=== PATIENT | male | born 1960 | race Caucasian/White ===

== ENCOUNTER 2017-09-23 16:59 | Inpatient (IN) | payer OTHER ==
[~2017-09-23] VITALS: Ht 172.7 cm; Wt 93.1 kg
[2017-09-23 17:45] LABS: MCH 29.2 PG (29.0-34.0); MCHC 32.1 G/DL (30.0-36.0); MCV 90.9 FL (86-99); MEAN PLAT.VOLUME 8.1 uM^3 (9.0-12.4); PLATELET COUNT 538 K/uL (156-360); RBC DIS.WIDTH-CV 13.3 % (11.8-14.6); RBC DIS.WIDTH-SD 45.1 % (39-53); RED BLOOD COUNT 4.73 M/uL (4.00-5.50); WHITE BLOOD COUNT 8.6 K/uL (4.1-10.2)
[2017-09-23 17:57] LABS: CHLORIDE 103 mEq/L (99-109); POTASSIUM 3.7 mEq/L (3.7-5.4); SODIUM 139 mEq/L (136-147)
[2017-09-23 17:59] LABS: GLUCOSE 245 mg/dL (70-99)
[2017-09-23 18:00] LABS: ANION GAP 12 MEQ/L (2-14)
[2017-09-23 18:01] LABS: TOTAL BILIRUBIN 0.3 mg/dL (0.0-1.0)
[2017-09-23 18:02] LABS: ALKALINE PHOSPHATASE 73 IU/L (3-129); GFR ESTIMATE (CALCULATED) > 59 mL/min/
[2017-09-23 18:04] LABS: UREA NITROGEN (BUN) 12 mg/dL (9-23)
[2017-09-23 18:08] LABS: TROP-I INTERPRETATION NEGATIVE; TROPONIN-I < 0.01 ng/mL (0.0-0.30)
[2017-09-23 18:25] LABS: PROTHROMBIN TIME 11.9 SEC (10.2-12.9)
[2017-09-23 18:28] LABS: PTT 25.8 SEC (25-37)
[2017-09-23 23:00] VITALS: BP 167/110
[2017-09-23 23:05] VITALS: BP 167/110
[2017-09-23 23:15] VITALS: BP 145/95
[2017-09-23 23:30] VITALS: BP 129/86
[2017-09-23 23:40] LABS: HEMATOCRIT 37.9 % (38.0-50.0); MCH 29.1 PG (29.0-34.0); MCHC 31.7 G/DL (30.0-36.0); MCV 91.8 FL (86-99); MEAN PLAT.VOLUME 8.3 uM^3 (9.0-12.4); PLATELET COUNT 398 K/uL (156-360); RBC DIS.WIDTH-CV 13.3 % (11.8-14.6); RBC DIS.WIDTH-SD 45.7 % (39-53); RED BLOOD COUNT 4.13 M/uL (4.00-5.50); WHITE BLOOD COUNT 2.4 K/uL (4.1-10.2)
[2017-09-23 23:45] VITALS: BP 117/72
[2017-09-23 23:46] LABS: BASE EXCESS -2.2 mEq/L (-3 to +3); BICARBONATE 24.6 mEq/L (22-26); CARBOXY HGB 0.8 % (0-5); COMMENTS - BLOOD GASES C+; DEVICE VENT; FI02 70 %; MECHANICAL RATE 14 resp/min; METHEMOGLOBIN 1.3 % (0-1.5); MODE AC; PCO2 50 mm Hg (35-45); PEEP 5 CM/H20; PO2 240 mm Hg (80-100); SITE RR; TIDAL VOLUME 500 ML; TOTAL RESP RATE 14 resp/min
[2017-09-23 23:47] LABS: SODIUM 140 mEq/L (136-147)
[2017-09-23 23:48] LABS: GLUCOSE 130 mg/dL (70-99)
[2017-09-23 23:50] LABS: ANION GAP 4 MEQ/L (2-14)
[2017-09-23 23:52] LABS: GFR ESTIMATE (CALCULATED) > 59 mL/min/
[2017-09-23 23:53] LABS: UREA NITROGEN (BUN) 12 mg/dL (9-23)
[2017-09-24] VITALS (24 sets, daily range): BP systolic 90–119; BP diastolic 60–78
[2017-09-24 00:04] LABS: CHLORIDE 114 mEq/L (99-109); POTASSIUM 4.5 mEq/L (3.7-5.4)
[2017-09-24 00:39] LABS: METH RESISTANT S AUREUS PCR NEGATIVE (NEGATIVE)
[2017-09-24 00:43] LABS: PROBE CHECK PASS; SPECIMEN PROCESSING CONTROL PASS
[2017-09-24 05:48] LABS: HEMATOCRIT 36.1 % (38.0-50.0); MCH 27.8 PG (29.0-34.0); MCHC 30.5 G/DL (30.0-36.0); MCV 91.4 FL (86-99); MEAN PLAT.VOLUME 8.5 uM^3 (9.0-12.4); PLATELET COUNT 392 K/uL (156-360); RBC DIS.WIDTH-CV 13.3 % (11.8-14.6); RBC DIS.WIDTH-SD 45.2 % (39-53); RED BLOOD COUNT 3.95 M/uL (4.00-5.50); WHITE BLOOD COUNT 2.6 K/uL (4.1-10.2)
[2017-09-24 06:07] LABS: ALKALINE PHOSPHATASE 37 IU/L (3-129); ANION GAP 7 MEQ/L (2-14); CHLORIDE 109 MEQ/L (99-109); GFR ESTIMATE (CALCULATED) > 59 mL/min/; GLUCOSE 144 mg/dL (70-99); POTASSIUM 5.4 MEQ/L (3.7-5.4); SAMPLE HEMOLYSIS CHECK 0; SAMPLE ICTERIC CHECK 0; SAMPLE LIPEMIA CHECK 0; SODIUM 140 MEQ/L (136-147); TOTAL BILIRUBIN 0.4 MG/DL (0.0-1.0); UREA NITROGEN (BUN) 14 mg/dL (9-23)
[2017-09-24 08:45] LABS: BASE EXCESS -2.4 mEq/L (-3 to +3); BICARBONATE 23.2 mEq/L (22-26); CARBOXY HGB 0.9 % (0-5); METHEMOGLOBIN 1.4 % (0-1.5); pH 7.35 (7.35-7.45)
[2017-09-24 08:46] LABS: COMMENTS - BLOOD GASES A+C+; DEVICE VENT; FI02 30 %; MODE TC; PCO2 42 mm Hg (35-45); PEEP 5 CM/H20; PO2 97 mm Hg (80-100); SITE RR; TOTAL RESP RATE 12 resp/min
[2017-09-24 14:00] LABS: POINT-OF-CARE METER ID UU14174217; POINT-OF-CARE USER ID 612031313
[2017-09-24 14:54] LABS: Estimated Average Glucose 140 mg/dL (70-123); HEMOGLOBIN A1c (GLYCOHEMOGLOB) 6.5 % HGB (Below 5.7)
[2017-09-24 18:15] LABS: POINT-OF-CARE METER ID UU14174217; POINT-OF-CARE USER ID 612031313
[2017-09-25] VITALS (18 sets, daily range): BP systolic 89–121; BP diastolic 56–75
[2017-09-25 00:26] LABS: POINT-OF-CARE METER ID UU13113748
[2017-09-25 05:40] LABS: HEMATOCRIT 36.2 % (38.0-50.0); MCH 28.1 PG (29.0-34.0); MCHC 30.1 G/DL (30.0-36.0); MCV 93.3 FL (86-99); MEAN PLAT.VOLUME 8.9 uM^3 (9.0-12.4); PLATELET COUNT 380 K/uL (156-360); RBC DIS.WIDTH-CV 13.8 % (11.8-14.6); RBC DIS.WIDTH-SD 47.1 % (39-53); RED BLOOD COUNT 3.88 M/uL (4.00-5.50); WHITE BLOOD COUNT 11.7 K/uL (4.1-10.2)
[2017-09-25 06:01] LABS: POINT-OF-CARE METER ID UU14162636
[2017-09-25 06:07] LABS: ABS NEUTROPHIL COUNT 10.3; BAND NEUTROPHILS 35.8 % (0-8.0); BURR CELLS 1+; EOSINOPHIL ABS CT 0.1; EOSINOPHILS 0.9 % (0-5.0); HYPOCHROMASIA 1+; INSTRUMENT ABS NEUTROPHIL CT 10.3 K/uL; LYMPHOCYTES 4.6 % (15.0-45.0); METAMYELOCYTES 4.6 %; MICROCYTOSIS 2+; PLAT.SUFFICIENCY ADEQUATE; POIKILOCYTOSIS 1+; SEG.NEUTROPHILS 52.3 % (46.0-76.0)
[2017-09-25 06:21] LABS: ANION GAP 6 MEQ/L (2-14); CHLORIDE 109 MEQ/L (99-109); GFR ESTIMATE (CALCULATED) > 59 mL/min/; POTASSIUM 4.7 MEQ/L (3.7-5.4); SAMPLE HEMOLYSIS CHECK 0; SAMPLE ICTERIC CHECK 0; SAMPLE LIPEMIA CHECK 0; SODIUM 142 MEQ/L (136-147); UREA NITROGEN (BUN) 16 mg/dL (9-23)
[2017-09-25 06:25] LABS: GLUCOSE 77 mg/dL (70-99)
[2017-09-25 12:24] LABS: POINT-OF-CARE METER ID UU13113803
[2017-09-25 17:30] LABS: POINT-OF-CARE METER ID UU14174217
[2017-09-26] VITALS (8 sets, daily range): BP systolic 97–142; BP diastolic 65–94
[2017-09-26 01:25] LABS: POINT-OF-CARE METER ID UU14174217; POINT-OF-CARE USER ID PHATLC
[2017-09-26 05:19] LABS: POINT-OF-CARE METER ID UU14314083; POINT-OF-CARE USER ID PHATLC
[2017-09-26 05:53] LABS: HEMATOCRIT 32.4 % (38.0-50.0); MCH 28.4 PG (29.0-34.0); MCHC 31.2 G/DL (30.0-36.0); PLATELET COUNT 399 K/uL (156-360); RBC DIS.WIDTH-CV 13.7 % (11.8-14.6); RBC DIS.WIDTH-SD 46.5 % (39-53); RED BLOOD COUNT 3.56 M/uL (4.00-5.50); WHITE BLOOD COUNT 12.3 K/uL (4.1-10.2)
[2017-09-26 06:31] LABS: ANION GAP 6 MEQ/L (2-14); CHLORIDE 108 MEQ/L (99-109); GFR ESTIMATE (CALCULATED) > 59 mL/min/; POTASSIUM 4.1 MEQ/L (3.7-5.4); SAMPLE HEMOLYSIS CHECK 0; SAMPLE ICTERIC CHECK 0; SAMPLE LIPEMIA CHECK 0; SODIUM 140 MEQ/L (136-147); UREA NITROGEN (BUN) 13 mg/dL (9-23)
[2017-09-26 06:36] LABS: GLUCOSE 98 mg/dL (70-99)
[2017-09-26 07:48] LABS: ABS NEUTROPHIL COUNT 11.7; ANISOCYTOSIS 1+; EOSINOPHIL ABS CT 0; INSTRUMENT ABS NEUTROPHIL CT 11.4 K/uL; PLAT.SUFFICIENCY ADEQUATE
[2017-09-26 13:06] LABS: POINT-OF-CARE METER ID UU14208751; POINT-OF-CARE USER ID 612031313
[2017-09-26 18:16] LABS: POINT-OF-CARE METER ID UU14208751; POINT-OF-CARE USER ID 612031313
[2017-09-27] VITALS (10 sets, daily range): BP systolic 125–146; BP diastolic 77–92
[2017-09-27 00:47] LABS: POINT-OF-CARE METER ID UU13113748; POINT-OF-CARE USER ID PHATLC
[2017-09-27 05:59] LABS: EOSINOPHIL (%) 0.6 % (0-5); EOSINOPHIL COUNT 0.1 K/uL (0-0.3); HEMATOCRIT 35.4 % (38.0-50.0); IMMATURE GRANULOCYTE (%) 0.4 % (0.0-0.7); IMMATURE GRANULOCYTE COUNT 0.1 K/uL; INSTRUMENT ABS NEUTROPHIL CT 12.3 K/uL; LYMPHOCYTE COUNT 0.8 K/uL (1.0-2.8); MCHC 31.9 G/DL (30.0-36.0); MCV 90.8 FL (86-99); MEAN PLAT.VOLUME 9.2 uM^3 (9.0-12.4); MONOCYTE (%) 4.9 % (3-12); MONOCYTE COUNT 0.7 K/uL (0-0.8); NEUTROPHIL (%) 88.3 % (45-76); NEUTROPHIL COUNT 12.3 K/uL (1.8-6.4); PLATELET COUNT 431 K/uL (156-360); RBC DIS.WIDTH-SD 47.3 % (39-53); WHITE BLOOD COUNT 13.9 K/uL (4.1-10.2)
[2017-09-27 06:19] LABS: ANION GAP 11 MEQ/L (2-14); CHLORIDE 104 MEQ/L (99-109); GFR ESTIMATE (CALCULATED) > 59 mL/min/; GLUCOSE 97 mg/dL (70-99); POTASSIUM 4.1 MEQ/L (3.7-5.4); SAMPLE HEMOLYSIS CHECK 0; SAMPLE ICTERIC CHECK 0; SAMPLE LIPEMIA CHECK 0; SODIUM 143 MEQ/L (136-147); UREA NITROGEN (BUN) 10 mg/dL (9-23)
[2017-09-27 11:42] LABS: POINT-OF-CARE METER ID UU14314082; POINT-OF-CARE USER ID 612031313
[2017-09-27 18:21] LABS: POINT-OF-CARE METER ID UU14174217; POINT-OF-CARE USER ID 612031313
[2017-09-28] VITALS (8 sets, daily range): BP systolic 104–138; BP diastolic 60–88
[2017-09-28 00:54] LABS: POINT-OF-CARE METER ID UU14174217
[2017-09-28 05:38] LABS: EOSINOPHIL COUNT 0.1 K/uL (0-0.3); HEMATOCRIT 31.1 % (38.0-50.0); IMMATURE GRANULOCYTE (%) 0.7 % (0.0-0.7); IMMATURE GRANULOCYTE COUNT 0.1 K/uL; INSTRUMENT ABS NEUTROPHIL CT 7.5 K/uL; LYMPHOCYTE COUNT 0.7 K/uL (1.0-2.8); MCH 28.4 PG (29.0-34.0); MCHC 31.8 G/DL (30.0-36.0); MCV 89.1 FL (86-99); MEAN PLAT.VOLUME 8.9 uM^3 (9.0-12.4); MONOCYTE (%) 7.8 % (3-12); MONOCYTE COUNT 0.7 K/uL (0-0.8); NEUTROPHIL (%) 82.5 % (45-76); NEUTROPHIL COUNT 7.5 K/uL (1.8-6.4); PLATELET COUNT 391 K/uL (156-360); RBC DIS.WIDTH-SD 45.6 % (39-53); RED BLOOD COUNT 3.49 M/uL (4.00-5.50); WHITE BLOOD COUNT 9.1 K/uL (4.1-10.2)
[2017-09-28 06:00] LABS: ANION GAP 7 MEQ/L (2-14); CHLORIDE 110 MEQ/L (99-109); GFR ESTIMATE (CALCULATED) > 59 mL/min/; GLUCOSE 103 mg/dL (70-99); POTASSIUM 3.3 MEQ/L (3.7-5.4); SAMPLE HEMOLYSIS CHECK 0; SAMPLE ICTERIC CHECK 0; SAMPLE LIPEMIA CHECK 0; SODIUM 144 MEQ/L (136-147); UREA NITROGEN (BUN) 10 mg/dL (9-23)
[2017-09-28 13:28] LABS: POINT-OF-CARE METER ID UU14208751
[2017-09-28] MEDS ORDERED: NEURONTIN300 MG PO (13:42)
[2017-09-28] MEDS ORDERED: ZANAFLEX4 M1 PO (13:42)
[2017-09-28] MEDS ORDERED: CLARITIN10 M3 PO (13:42)
[2017-09-28] MEDS ORDERED: ULTRAM50 MG PO (13:43)
[2017-09-28] MEDS ORDERED: VENTOLIN HFA18 GM IH (13:44)
[2017-09-28] MEDS ORDERED: TYLENOL ARTHRI650 MG PO (13:44)
[2017-09-28 17:56] LABS: POINT-OF-CARE METER ID UU13113774
[2017-09-29] VITALS (7 sets, daily range): BP systolic 127–143; BP diastolic 69–81
[2017-09-29 01:07] LABS: POINT-OF-CARE METER ID UU13113725
[2017-09-29 06:11] LABS: MCH 28.1 PG (29.0-34.0); MCHC 31.6 G/DL (30.0-36.0); MCV 89.1 FL (86-99); MEAN PLAT.VOLUME 8.9 uM^3 (9.0-12.4); PLATELET COUNT 423 K/uL (156-360); RBC DIS.WIDTH-CV 14.1 % (11.8-14.6); RBC DIS.WIDTH-SD 45.8 % (39-53); RED BLOOD COUNT 3.59 M/uL (4.00-5.50); WHITE BLOOD COUNT 8.6 K/uL (4.1-10.2)
[2017-09-29 06:33] LABS: ANION GAP 8 MEQ/L (2-14); CHLORIDE 109 MEQ/L (99-109); GFR ESTIMATE (CALCULATED) > 59 mL/min/; GLUCOSE 93 mg/dL (70-99); POTASSIUM 3.8 MEQ/L (3.7-5.4); SAMPLE HEMOLYSIS CHECK 0; SAMPLE ICTERIC CHECK 0; SAMPLE LIPEMIA CHECK 0; SODIUM 144 MEQ/L (136-147); UREA NITROGEN (BUN) 11 mg/dL (9-23)
[2017-09-29 06:35] LABS: POINT-OF-CARE METER ID UU13113725
[2017-09-29 06:53] LABS: EOSINOPHIL (%) 2.1 % (0-5); EOSINOPHIL COUNT 0.2 K/uL (0-0.3); IMMATURE GRANULOCYTE (%) 1.2 % (0.0-0.7); IMMATURE GRANULOCYTE COUNT 0.1 K/uL; INSTRUMENT ABS NEUTROPHIL CT 6.3 K/uL; LYMPHOCYTE COUNT 1.1 K/uL (1.0-2.8); MONOCYTE (%) 10.2 % (3-12); MONOCYTE COUNT 0.9 K/uL (0-0.8); NEUTROPHIL (%) 73.3 % (45-76); NEUTROPHIL COUNT 6.3 K/uL (1.8-6.4)
[2017-09-29 11:25] LABS: POINT-OF-CARE METER ID UU13113774
[2017-09-30 04:16] VITALS: BP 132/79
[2017-09-30 06:53] VITALS: BP 123/73
[2017-09-30 11:25] VITALS: BP 118/74
[2017-09-30 15:20] VITALS: BP 125/77
[2017-09-30 19:55] VITALS: BP 130/80
[2017-09-30 21:38] LABS: POINT-OF-CARE METER ID UU13113725
[2017-09-30 23:24] VITALS: BP 138/85
[2017-10-01 04:23] VITALS: BP 137/83
[2017-10-01 05:39] LABS: HEMATOCRIT 31.8 % (38.0-50.0); MCH 28.6 PG (29.0-34.0); MCHC 32.4 G/DL (30.0-36.0); MCV 88.3 FL (86-99); MEAN PLAT.VOLUME 8.6 uM^3 (9.0-12.4); PLATELET COUNT 442 K/uL (156-360); RBC DIS.WIDTH-CV 13.8 % (11.8-14.6); RBC DIS.WIDTH-SD 44.8 % (39-53); WHITE BLOOD COUNT 10.9 K/uL (4.1-10.2)
[2017-10-01 06:29] LABS: ANION GAP 6 MEQ/L (2-14); CHLORIDE 109 MEQ/L (99-109); GFR ESTIMATE (CALCULATED) > 59 mL/min/; GLUCOSE 88 mg/dL (70-99); POTASSIUM 3.8 MEQ/L (3.7-5.4); PREALBUMIN 6.6 mg/dL (10-40); SAMPLE HEMOLYSIS CHECK 0; SAMPLE ICTERIC CHECK 0; SAMPLE LIPEMIA CHECK 0; SODIUM 144 MEQ/L (136-147); UREA NITROGEN (BUN) 10 mg/dL (9-23)
[2017-10-01 07:51] VITALS: BP 143/75
[2017-10-01 12:19] VITALS: BP 127/65
[2017-10-01 19:07] VITALS: BP 120/72
[2017-10-02] VITALS (8 sets, daily range): BP systolic 117–136; BP diastolic 63–74
[2017-10-02 06:14] LABS: ANION GAP 5 MEQ/L (2-14); CHLORIDE 109 MEQ/L (99-109); GFR ESTIMATE (CALCULATED) > 59 mL/min/; GLUCOSE 98 mg/dL (70-99); POTASSIUM 3.5 MEQ/L (3.7-5.4); SAMPLE HEMOLYSIS CHECK 0; SAMPLE ICTERIC CHECK 0; SAMPLE LIPEMIA CHECK 0; SODIUM 143 MEQ/L (136-147); UREA NITROGEN (BUN) 9 mg/dL (9-23)
[2017-10-03 04:03] VITALS: BP 129/75
[2017-10-03 06:33] LABS: ANION GAP 8 MEQ/L (2-14); CHLORIDE 104 MEQ/L (99-109); GFR ESTIMATE (CALCULATED) > 59 mL/min/; GLUCOSE 93 mg/dL (70-99); POTASSIUM 3.9 MEQ/L (3.7-5.4); SAMPLE HEMOLYSIS CHECK 0; SAMPLE ICTERIC CHECK 0; SAMPLE LIPEMIA CHECK 0; SODIUM 141 MEQ/L (136-147); UREA NITROGEN (BUN) 9 mg/dL (9-23)
[2017-10-03 08:07] VITALS: BP 118/60
[2017-10-03 11:26] VITALS: BP 114/63
[2017-10-03 16:24] VITALS: BP 120/72
[2017-10-03 19:22] VITALS: BP 132/68
[2017-10-04] VITALS (7 sets, daily range): BP systolic 110–131; BP diastolic 67–82
[2017-10-04 06:33] LABS: ANION GAP 6 MEQ/L (2-14); CHLORIDE 104 MEQ/L (99-109); GFR ESTIMATE (CALCULATED) > 59 mL/min/; GLUCOSE 92 mg/dL (70-99); POTASSIUM 4.1 MEQ/L (3.7-5.4); SAMPLE HEMOLYSIS CHECK 0; SAMPLE ICTERIC CHECK 0; SAMPLE LIPEMIA CHECK 0; SODIUM 141 MEQ/L (136-147); UREA NITROGEN (BUN) 11 mg/dL (9-23)
[2017-10-04 11:07] LABS: EOSINOPHIL (%) 0.7 % (0-5); EOSINOPHIL COUNT 0.1 K/uL (0-0.3); HEMATOCRIT 31.5 % (38.0-50.0); IMMATURE GRANULOCYTE (%) 0.7 % (0.0-0.7); IMMATURE GRANULOCYTE COUNT 0.1 K/uL; LYMPHOCYTE COUNT 1.4 K/uL (1.0-2.8); MCHC 31.7 G/DL (30.0-36.0); MCV 91.3 FL (86-99); MEAN PLAT.VOLUME 9.3 uM^3 (9.0-12.4); MONOCYTE COUNT 1.1 K/uL (0-0.8); NEUTROPHIL (%) 80.1 % (45-76); RBC DIS.WIDTH-CV 14.2 % (11.8-14.6); RBC DIS.WIDTH-SD 47.8 % (39-53); RED BLOOD COUNT 3.45 M/uL (4.00-5.50); WHITE BLOOD COUNT 13.7 K/uL (4.1-10.2)
[2017-10-04 11:10] LABS: PLATELET COUNT 610 K/uL (156-360)
[2017-10-05 05:31] LABS: EOSINOPHIL (%) 0.8 % (0-5); EOSINOPHIL COUNT 0.1 K/uL (0-0.3); HEMATOCRIT 30.1 % (38.0-50.0); IMMATURE GRANULOCYTE (%) 0.7 % (0.0-0.7); IMMATURE GRANULOCYTE COUNT 0.1 K/uL; INSTRUMENT ABS NEUTROPHIL CT 11.4 K/uL; LYMPHOCYTE COUNT 1.3 K/uL (1.0-2.8); MCH 28.7 PG (29.0-34.0); MCHC 32.6 G/DL (30.0-36.0); MCV 88.3 FL (86-99); MEAN PLAT.VOLUME 8.7 uM^3 (9.0-12.4); MONOCYTE COUNT 1.3 K/uL (0-0.8); NEUTROPHIL COUNT 11.4 K/uL (1.8-6.4); PLATELET COUNT 681 K/uL (156-360); RBC DIS.WIDTH-SD 45.6 % (39-53); RED BLOOD COUNT 3.41 M/uL (4.00-5.50); WHITE BLOOD COUNT 14.2 K/uL (4.1-10.2)
[2017-10-05 05:56] LABS: ANION GAP 5 MEQ/L (2-14); CHLORIDE 103 MEQ/L (99-109); GFR ESTIMATE (CALCULATED) > 59 mL/min/; GLUCOSE 103 mg/dL (70-99); POTASSIUM 4.5 MEQ/L (3.7-5.4); SAMPLE HEMOLYSIS CHECK 0; SAMPLE ICTERIC CHECK 0; SAMPLE LIPEMIA CHECK 0; SODIUM 139 MEQ/L (136-147); UREA NITROGEN (BUN) 10 mg/dL (9-23)
[2017-10-05 07:17] VITALS: BP 115/65
[2017-10-05 07:30] VITALS: BP 131/69
[2017-10-05 15:35] VITALS: BP 93/52
[2017-10-05 23:45] VITALS: BP 125/69
[2017-10-06 06:23] LABS: EOSINOPHIL (%) 1.2 % (0-5); EOSINOPHIL COUNT 0.2 K/uL (0-0.3); HEMATOCRIT 31.8 % (38.0-50.0); IMMATURE GRANULOCYTE (%) 0.7 % (0.0-0.7); IMMATURE GRANULOCYTE COUNT 0.1 K/uL; INSTRUMENT ABS NEUTROPHIL CT 11.7 K/uL; LYMPHOCYTE COUNT 1.4 K/uL (1.0-2.8); MCH 27.9 PG (29.0-34.0); MCHC 31.4 G/DL (30.0-36.0); MCV 88.6 FL (86-99); MEAN PLAT.VOLUME 8.7 uM^3 (9.0-12.4); MONOCYTE (%) 11.3 % (3-12); MONOCYTE COUNT 1.7 K/uL (0-0.8); NEUTROPHIL (%) 77.1 % (45-76); NEUTROPHIL COUNT 11.7 K/uL (1.8-6.4); PLATELET COUNT 842 K/uL (156-360); RBC DIS.WIDTH-CV 13.8 % (11.8-14.6); RBC DIS.WIDTH-SD 44.9 % (39-53); RED BLOOD COUNT 3.59 M/uL (4.00-5.50); WHITE BLOOD COUNT 15.2 K/uL (4.1-10.2)
[2017-10-06 06:43] LABS: ANION GAP 7 MEQ/L (2-14); CHLORIDE 104 MEQ/L (99-109); GFR ESTIMATE (CALCULATED) > 59 mL/min/; GLUCOSE 102 mg/dL (70-99); SAMPLE HEMOLYSIS CHECK 0; SAMPLE ICTERIC CHECK 0; SAMPLE LIPEMIA CHECK 0; SODIUM 141 MEQ/L (136-147); UREA NITROGEN (BUN) 10 mg/dL (9-23)
[2017-10-06 07:37] VITALS: BP 105/62
[2017-10-06 15:20] VITALS: BP 120/67
[2017-10-06 23:25] VITALS: BP 126/66
[2017-10-07 08:03] VITALS: BP 118/56
[2017-10-07 11:54] LABS: BASOPHIL COUNT 0.1 K/uL (0-0.1); EOSINOPHIL (%) 0.8 % (0-5); EOSINOPHIL COUNT 0.1 K/uL (0-0.3); HEMATOCRIT 31.3 % (38.0-50.0); IMMATURE GRANULOCYTE (%) 0.5 % (0.0-0.7); IMMATURE GRANULOCYTE COUNT 0.1 K/uL; INSTRUMENT ABS NEUTROPHIL CT 10.7 K/uL; LYMPHOCYTE COUNT 1.2 K/uL (1.0-2.8); MCH 27.9 PG (29.0-34.0); MCHC 31.9 G/DL (30.0-36.0); MCV 87.4 FL (86-99); MEAN PLAT.VOLUME 8.4 uM^3 (9.0-12.4); MONOCYTE (%) 10.1 % (3-12); MONOCYTE COUNT 1.4 K/uL (0-0.8); NEUTROPHIL (%) 79.5 % (45-76); NEUTROPHIL COUNT 10.7 K/uL (1.8-6.4); PLATELET COUNT 955 K/uL (156-360); RBC DIS.WIDTH-CV 13.7 % (11.8-14.6); RBC DIS.WIDTH-SD 44.4 % (39-53); RED BLOOD COUNT 3.58 M/uL (4.00-5.50); WHITE BLOOD COUNT 13.5 K/uL (4.1-10.2)
[2017-10-07 12:16] LABS: ANION GAP 4 MEQ/L (2-14); CHLORIDE 101 MEQ/L (99-109); POTASSIUM 5.4 MEQ/L (3.7-5.4); SAMPLE HEMOLYSIS CHECK 0; SAMPLE ICTERIC CHECK 0; SAMPLE LIPEMIA CHECK 0; SODIUM 136 MEQ/L (136-147); TOTAL BILIRUBIN 0.3 MG/DL (0.0-1.0)
[2017-10-07 12:21] LABS: ALKALINE PHOSPHATASE 75 IU/L (3-129); GFR ESTIMATE (CALCULATED) > 59 mL/min/; GLUCOSE 107 mg/dL (70-99); UREA NITROGEN (BUN) 11 mg/dL (9-23)
[2017-10-07 13:56] LABS: ERTH.SED.RATE 91 MM/HR (0-20)
[2017-10-07 14:44] LABS: C-REACTIVE PROTEIN 83.8 MG/L (0-10)
[2017-10-07 16:00] VITALS: BP 125/72
[2017-10-07 23:26] VITALS: BP 121/67
[2017-10-08 07:36] VITALS: BP 124/66
[2017-10-08 08:59] LABS: BASOPHIL COUNT 0.1 K/uL (0-0.1); EOSINOPHIL (%) 1.4 % (0-5); EOSINOPHIL COUNT 0.2 K/uL (0-0.3); IMMATURE GRANULOCYTE (%) 0.4 % (0.0-0.7); IMMATURE GRANULOCYTE COUNT 0.1 K/uL; INSTRUMENT ABS NEUTROPHIL CT 9.3 K/uL; LYMPHOCYTE COUNT 1.3 K/uL (1.0-2.8); MCH 28.3 PG (29.0-34.0); MCHC 32.3 G/DL (30.0-36.0); MCV 87.8 FL (86-99); MEAN PLAT.VOLUME 8.5 uM^3 (9.0-12.4); MONOCYTE (%) 11.4 % (3-12); MONOCYTE COUNT 1.4 K/uL (0-0.8); NEUTROPHIL (%) 75.7 % (45-76); NEUTROPHIL COUNT 9.3 K/uL (1.8-6.4); PLATELET COUNT 932 K/uL (156-360); RBC DIS.WIDTH-CV 14.1 % (11.8-14.6); RBC DIS.WIDTH-SD 45.1 % (39-53); RED BLOOD COUNT 3.53 M/uL (4.00-5.50); WHITE BLOOD COUNT 12.2 K/uL (4.1-10.2)
[2017-10-08 09:32] LABS: ANION GAP 7 MEQ/L (2-14); CHLORIDE 100 MEQ/L (99-109); GFR ESTIMATE (CALCULATED) > 59 mL/min/; GLUCOSE 123 mg/dL (70-99); POTASSIUM 5.3 MEQ/L (3.7-5.4); SAMPLE HEMOLYSIS CHECK 0; SAMPLE ICTERIC CHECK 0; SAMPLE LIPEMIA CHECK 0; SODIUM 136 MEQ/L (136-147); UREA NITROGEN (BUN) 13 mg/dL (9-23)
[2017-10-08 17:48] VITALS: BP 118/66
[2017-10-08 23:45] VITALS: BP 137/65
[2017-10-09 05:59] LABS: BASOPHIL COUNT 0.1 K/uL (0-0.1); EOSINOPHIL (%) 1.2 % (0-5); EOSINOPHIL COUNT 0.1 K/uL (0-0.3); IMMATURE GRANULOCYTE (%) 0.4 % (0.0-0.7); IMMATURE GRANULOCYTE COUNT 0.1 K/uL; INSTRUMENT ABS NEUTROPHIL CT 8.9 K/uL; LYMPHOCYTE COUNT 1.4 K/uL (1.0-2.8); MONOCYTE COUNT 1.4 K/uL (0-0.8); NEUTROPHIL (%) 74.2 % (45-76); NEUTROPHIL COUNT 8.9 K/uL (1.8-6.4)
[2017-10-09 06:01] LABS: HEMATOCRIT 30.7 % (38.0-50.0); MCH 28.4 PG (29.0-34.0); MCHC 32.6 G/DL (30.0-36.0); MCV 87.2 FL (86-99); RBC DIS.WIDTH-SD 44.7 % (39-53); RED BLOOD COUNT 3.52 M/uL (4.00-5.50)
[2017-10-09 06:23] LABS: ANION GAP 8 MEQ/L (2-14); CHLORIDE 100 MEQ/L (99-109); GFR ESTIMATE (CALCULATED) > 59 mL/min/; GLUCOSE 101 mg/dL (70-99); POTASSIUM 5.3 MEQ/L (3.7-5.4); SAMPLE HEMOLYSIS CHECK 0; SAMPLE ICTERIC CHECK 0; SAMPLE LIPEMIA CHECK 0; SODIUM 136 MEQ/L (136-147); UREA NITROGEN (BUN) 14 mg/dL (9-23)
[2017-10-09 06:41] LABS: PLAT.SUFFICIENCY INCREASED
[2017-10-09 06:59] VITALS: BP 115/66
[2017-10-09 11:17] VITALS: BP 130/70
[2017-10-09] MEDS ORDERED: DIAZEPAM5 MG PO (12:41)
[2017-10-09] MEDS ORDERED: OXYCODONE HCL5 MG PO (12:41)
[2017-10-09] MEDS ORDERED: FLUOXETINE HCL20 MG PO (12:41)
[2017-10-09 13:27] LABS: MEAN PLAT.VOLUME 8.7 uM^3 (9.0-12.4); PLATELET COUNT 1123 K/uL (156-360)
[2017-10-09 15:30] VITALS: BP 110/70
[2017-10-09] MEDS ORDERED: LOVENOX40 MG/0.4 SC (15:47)
== END 2017-10-09 19:15 | disposition home health service (06) | DRG 329 ==
LOC: EME 16:59 → SDC 20:23 → 5EAST 22:52 → 4WEST 22:52 → ENRESERV 09-28 11:56 → 5EAST 09-28 14:15
PROVIDERS: Internal Medicine; Internal Medicine Critical Care Medicine; Nurse Practitioner Family; Physician Assistant; Surgery
DX: C19 Malignant neoplasm of rectosigmoid junction (principal); C78.7 Secondary malignant neoplasm of liver and intrahepatic bile duct; A41.89 Other specified sepsis; R65.20 Severe sepsis without septic shock; J96.00 Acute respiratory failure, unspecified whether with hypoxia or hypercapnia; K63.1 Perforation of intestine (nontraumatic); K65.0 Generalized (acute) peritonitis; R18.8 Other ascites; E88.09 Other disorders of plasma-protein metabolism, not elsewhere classified; E11.65 Type 2 diabetes mellitus with hyperglycemia; B37.0 Candidal stomatitis; G47.00 Insomnia, unspecified; F43.21 Adjustment disorder with depressed mood; E86.0 Dehydration; E86.1 Hypovolemia; E87.6 Hypokalemia; D64.9 Anemia, unspecified; R91.1 Solitary pulmonary nodule; G89.29 Other chronic pain; M54.9 Dorsalgia, unspecified; J45.909 Unspecified asthma, uncomplicated; E66.9 Obesity, unspecified; Z87.891 Personal history of nicotine dependence; Z88.0 Allergy status to penicillin; Z23 Encounter for immunization; Z68.31 Body mass index [BMI] 31.0-31.9, adult; Z22.39 Carrier of other specified bacterial diseases
CPT/HCPCS: 36600; 71010; 71020; 71275; 75635; 77012; 80048; 80048 91; 80053; 80200; 80299 90; 81003; 82378; 82803; 82948; 83036; 83605; 84134; 84484; 85025; 85027; 85610; 85651; 85730; 86140; 86301 90; 86850; 86900; 86901; 87040; 87070; 87075; 87076; 87077; 87185; 87186; 87205; 87641; 87801; 88302; 88307; 88341 TC; 88342 TC; 90686; 93005; 94002; 94003; 94799; 97530 GO; 97530 GP; 99281; 99285; J0330; J1100; J1170; J1335; J1650; J1815; J1885; J2250; J2270; J2405; J2704; J3010; J3260; J3370; J7030; J7040; J7042; J7050; S0028; S0030

== ENCOUNTER → 2017-11-16 | Outpatient (CLI) | payer OTHER ==
[~2017-11-16] MED LIST: CLARITIN10 M3 PO; DIAZEPAM5 MG PO; FLUOXETINE HCL20 MG PO; LOVENOX40 MG/0.4 SC; NEURONTIN300 MG PO; OXYCODONE HCL5 MG PO; ROXICODONE5 MG PO; TYLENOL ARTHRI650 MG PO; ULTRAM50 MG PO; VENTOLIN HFA18 GM IH; ZANAFLEX4 M1 PO
== END | disposition home or self-care (01) ==
LOC: CDC 15:55
DX: Z01.810 Encounter for preprocedural cardiovascular examination (principal); C20 Malignant neoplasm of rectum; I45.10 Unspecified right bundle-branch block; R94.31 Abnormal electrocardiogram [ECG] [EKG]
CPT/HCPCS: 93000

== ENCOUNTER 2017-11-19 07:52 | Day surgery (SDC) | payer OTHER ==
[~2017-11-19] VITALS: Ht 172.7 cm; Wt 82.1 kg
[2017-11-19 09:36] VITALS: BP 114/59
[2017-11-19 13:27] VITALS: BP 116/70
[2017-11-19 15:36] VITALS: BP 114/65
[2017-11-19 19:17] VITALS: BP 107/60
[2017-11-19 23:10] VITALS: BP 115/59
[2017-11-20 03:31] VITALS: BP 110/60
[2017-11-20 08:37] VITALS: BP 118/73
== END 2017-11-20 10:47 | disposition home or self-care (01) ==
LOC: SDC → 2EAST 11:41 → 2SOUTH 11:41 → ENRESERV 11:54 → 2EAST 13:20 → SDC 14:43 → 2EAST 11-20 10:47
PROVIDERS: Surgery
PROC: 0JH63WZ Insertion of Totally Implantable Vascular Access Device into Chest Subcutaneous Tissue and Fascia, Percutaneous Approach (ICD-10-PCS; principal; 2017-11-19)
DX: Z45.2 Encounter for adjustment and management of vascular access device (principal); C19 Malignant neoplasm of rectosigmoid junction; C78.7 Secondary malignant neoplasm of liver and intrahepatic bile duct; E11.9 Type 2 diabetes mellitus without complications; M54.12 Radiculopathy, cervical region; J45.20 Mild intermittent asthma, uncomplicated; I45.10 Unspecified right bundle-branch block; Z87.891 Personal history of nicotine dependence
CPT/HCPCS: 71045; 82948; C1751; G0378; J0330; J0690; J1644; J2250; J2405; J3010; J7120; S0020

== ENCOUNTER 2018-06-18 14:13 | Inpatient (IN) | payer OTHER ==
[~2018-06-18] VITALS: Ht 172.7 cm; Wt 88.5 kg
[~2018-06-18 14:13] MED LIST changes: +ANTI-DIARRHEA2 MG PO
[2018-06-18 15:10] LABS: HEMATOCRIT 40.9 % (38.0-50.0); HEMOGLOBIN 13.8 G/DL (12.5-16.6); MCH 31.3 PG (29.0-34.0); MCHC 33.7 G/DL (30.0-36.0); MCV 92.7 FL (86-99); PLATELET COUNT 270 K/uL (156-360); RBC DIS.WIDTH-SD 51.6 % (39-53); RED BLOOD COUNT 4.41 M/uL (4.00-5.50); WHITE BLOOD COUNT 3.4 K/uL (4.1-10.2)
[2018-06-18 15:22] LABS: ALBUMIN 3.5 g/dL (3.2-4.8); CHLORIDE 100 mEq/L (99-109); POTASSIUM 4.3 mEq/L (3.7-5.4); SODIUM 135 mEq/L (136-147)
[2018-06-18 15:24] LABS: GLUCOSE 104 mg/dL (70-99)
[2018-06-18 15:26] LABS: TOTAL BILIRUBIN 1.2 mg/dL (0.0-1.0)
[2018-06-18 15:28] LABS: ALKALINE PHOSPHATASE 122 IU/L (3-129); GFR ESTIMATE (CALCULATED) > 59 mL/min/ (58.99-99999)
[2018-06-18 15:29] LABS: UREA NITROGEN (BUN) 20 mg/dL (9-23)
[2018-06-18 15:30] LABS: AST (GOT) 21 IU/L (2-34)
[2018-06-18 15:31] LABS: ALT (GPT) 22 IU/L (3-49)
[2018-06-18 23:13] VITALS: BP 131/81
[2018-06-19 00:34] VITALS: BP 121/66
[2018-06-19 03:57] VITALS: BP 133/78
[2018-06-19 07:22] LABS: APPEARANCE CLOUDY ((CLEAR)); BILIRUBIN NEGATIVE; BLOOD LARGE; COLOR YELLOW ((YELLOW)); GLUCOSE (STRIP) NEGATIVE; KETONES NEGATIVE; LEUKOCYTES LARGE; NITRITE NEGATIVE; PROTEIN (STRIP) 30; SPECIFIC GRAVITY 1.039 (1.000-1.030)
[2018-06-19 07:43] LABS: BACTERIA 1+ /HPF; EPITHELIAL CELLS RARE /HPF; MUCUS NONE SEEN /LPF; UCUL ADDED? YES; WHITE BLOOD CELLS TNTC /HPF (0-5)
[2018-06-19 08:03] VITALS: BP 135/78
[2018-06-19 12:02] VITALS: BP 134/79
[2018-06-19 15:18] VITALS: BP 132/78
[2018-06-19 20:00] VITALS: BP 127/81
[2018-06-20] VITALS: BP 129/77
[2018-06-20 07:57] VITALS: BP 128/81
[2018-06-20 11:52] VITALS: BP 129/73
[2018-06-20 15:34] VITALS: BP 126/85
[2018-06-20] MEDS ORDERED: ALLERGY RELIEF10 M1 PO (15:47)
[2018-06-20] MEDS ORDERED: OXYCODONE HCL5 MG PO (15:48)
[2018-06-20] MEDS ORDERED: TIZANIDINE HCL4 MG PO (15:49)
[2018-06-20] MEDS ORDERED: WELLBUTRIN SR150 MG PO (15:49)
[2018-06-20] MEDS ORDERED: VENTOLIN HFA18 GM IH (15:51)
[2018-06-20 20:00] VITALS: BP 135/71
[2018-06-21 00:13] VITALS: BP 139/76
[2018-06-21 12:22] VITALS: BP 112/66
[2018-06-21 16:30] VITALS: BP 132/70
[2018-06-22] VITALS: BP 130/69
[2018-06-22 07:17] VITALS: BP 141/80
[2018-06-22 12:47] VITALS: BP 141/72
[2018-06-22 15:15] VITALS: BP 136/91
[2018-06-22 20:43] VITALS: BP 127/62
[2018-06-23] VITALS (7 sets, daily range): BP systolic 124–144; BP diastolic 72–85
[2018-06-24] VITALS (7 sets, daily range): BP systolic 128–146; BP diastolic 58–96
[2018-06-25 04:00] VITALS: BP 148/88
[2018-06-25 07:13] VITALS: BP 139/90
[2018-06-25 15:53] VITALS: BP 134/80
[2018-06-25 21:26] VITALS: BP 149/76
[2018-06-26 00:18] VITALS: BP 149/72
[2018-06-26 04:39] VITALS: BP 114/74
[2018-06-26 07:28] VITALS: BP 123/80
[2018-06-26 16:09] VITALS: BP 135/77
[2018-06-27 00:27] VITALS: BP 116/65
[2018-06-27 07:34] VITALS: BP 128/76
[2018-06-27] MEDS ORDERED: POLYETHYLENE GL17 GM PO (09:16)
[2018-06-27] MEDS ORDERED: OXAYDO5 MG PO (09:38)
== END 2018-06-27 10:53 | disposition home or self-care (01) | DRG 375 ==
LOC: EME 14:13 → EDOF 20:57 → 5SOUTH 20:57 → ENRESERV 21:25 → 5SOUTH 22:38 → ENPENDDIS 06-27 09:17 → 5SOUTH 06-27 10:53
DX: C19 Malignant neoplasm of rectosigmoid junction (principal); C78.7 Secondary malignant neoplasm of liver and intrahepatic bile duct; C78.00 Secondary malignant neoplasm of unspecified lung; E86.0 Dehydration; K59.03 Drug induced constipation; T40.2X5A Adverse effect of other opioids, initial encounter; Z79.891 Long term (current) use of opiate analgesic; Z87.891 Personal history of nicotine dependence; Z93.3 Colostomy status; K56.51 Intestinal adhesions [bands], with partial obstruction; Z66 Do not resuscitate; E66.9 Obesity, unspecified; G89.29 Other chronic pain; F43.20 Adjustment disorder, unspecified; R39.89 Other symptoms and signs involving the genitourinary system; R82.71 Bacteriuria; J45.909 Unspecified asthma, uncomplicated; Z68.29 Body mass index [BMI] 29.0-29.9, adult; C79.70 Secondary malignant neoplasm of unspecified adrenal gland; R39.11 Hesitancy of micturition; C79.11 Secondary malignant neoplasm of bladder; C78.4 Secondary malignant neoplasm of small intestine; F43.21 Adjustment disorder with depressed mood
CPT/HCPCS: 74021; 74177; 80053; 81003; 82948; 85027; 87086; 94799; 99281; 99285; J1650; J2270; J2405; J2997; J7030